=== PATIENT | female | born 1955 | race American Indian/Alaskan Native ===

== ENCOUNTER 2017-07-11 10:09 | Emergency (ER) | payer OTHER ==
[2017-07-11 10:23] VITALS: BP 148/87
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
--- NOTE | 2017-07-11 12:55 | XRay Report ---
AP CHEST: HISTORY: chest pain AP view of the chest demonstrates a normal mediastinal and cardiac contour with clear lungs and normal bony and soft tissue structures. IMPRESSION: Unremarkable AP chest.
== END 2017-07-11 13:12 | disposition home or self-care (01) ==
LOC: ED 10:09
DX: S20.211A Contusion of right front wall of thorax, initial encounter (principal); I10 Essential (primary) hypertension; F17.200 Nicotine dependence, unspecified, uncomplicated; Z88.8 Allergy status to other drugs, medicaments and biological substances; V89.2XXA Person injured in unspecified motor-vehicle accident, traffic, initial encounter; Y93.89 Activity, other specified; Y92.89 Other specified places as the place of occurrence of the external cause; Y99.8 Other external cause status
CPT/HCPCS: 71045

== ENCOUNTER 2019-06-16 08:42 | Emergency (ER) | payer MEDICARE, OTHER ==
--- NOTE | 2019-06-16 13:51 | Emergency Department Report ---
ED Eye Problem HPI - General Chief complaint: Eye Problems Stated complaint: LT EYE RED/ITCHING/DRAINAGE Source: patient Mode of arrival: Ambulatory Limitations: No Limitations - Related Data Home Medications Medication Instructions Recorded Confirmed Last Taken HCTZ 12.5 mg PO DAILY 02/22/16 02/22/16 Unknown Previous Rx's Medication Instructions Recorded Last Taken Type Ondansetron [Zofran Odt] 4 mg PO Q8HR #20 tab.rapdis 02/23/16 Unknown Rx Metaxalone [Skelaxin] 800 mg PO TID #20 tablet 07/11/17 Unknown Rx Naproxen [Naprosyn] 500 mg PO BID #14 tablet 07/11/17 Unknown Rx Gentamicin 0.3% Ophth Oint 1 applicatio OP Q4H 7 Days #1 tube 06/16/19 Unknown Rx Allergies Allergy/AdvReac Type Severity Reaction Status Date / Time iodine Allergy Anaphylaxis Verified 02/22/16 23:05 ED Review of Systems ROS: Stated complaint: LT EYE RED/ITCHING/DRAINAGE Other details as noted in HPI ED Past Medical Hx - Past Medical History Hx Hypertension: Yes Additional medical history: Hepatitis C, Cerebral Aneruysm - Surgical History Hx Appendectomy: Yes Additional Surgical History: Tubal Ligation, Brain aneurysm surgery 2013 - Social History Smoking Status: Never Smoker Substance Use Type: None - Medications Home Medications: Home Medications Medication Instructions Recorded Confirmed Last Taken Type HCTZ 12.5 mg PO DAILY 02/22/16 02/22/16 Unknown History Ondansetron [Zofran Odt] 4 mg PO Q8HR #20 tab.rapdis 02/23/16 Unknown Rx Metaxalone [Skelaxin] 800 mg PO TID #20 tablet 07/11/17 Unknown Rx Naproxen [Naprosyn] 500 mg PO BID #14 tablet 07/11/17 Unknown Rx Gentamicin 0.3% Ophth Oint 1 applicatio OP Q4H 7 Days #1 tube 06/16/19 Unknown Rx ED Physical Exam - General Limitations: No Limitations General appearance: alert, in no apparent distress - Head Head exam: Present: atraumatic - Eye Eye exam: Present: PERRL, EOMI, other (left upper eye internal hordeolum sclera mildly injected. ). Absent: periorbital swelling, periorbital tenderness - ENT ENT exam: Present: normal exam, normal orophraynx, mucous membranes moist - Neck Neck exam: Present: normal inspection. Absent: tenderness, lymphadenopathy - Respiratory Respiratory exam: Present: normal lung sounds bilaterally. Absent: respiratory distress, wheezes, rales, rhonchi - Cardiovascular Cardiovascular Exam: Present: regular rate, normal rhythm - GI/Abdominal GI/Abdominal exam: Absent: soft, distended, tenderness, guarding, rebound - Rectal Rectal exam: Absent: deferred - Extremities Exam Extremities exam: Present: normal inspection - Back Exam Back exam: Present: normal inspection - Neurological Exam Neurological exam: Present: alert - Psychiatric Psychiatric exam: Present: normal affect - Skin Skin exam: Present: warm, dry, intact, normal color. Absent: rash ED Course Vital Signs 06/16/19 06/16/19 06/16/19 08:51 08:52 14:00 Temperature 98.7 F 98.7 F Pulse Rate 67 61 Respiratory 16 Rate Blood Pressure 145/105 Blood Pressure 140/100 [Right] O2 Sat by Pulse 97 100 Oximetry ED Medical Decision Making - Medical Decision Making 63-year-old female with 3 day complaint of left upper eyelid irritation and itching. She denies any visual disturbance she has no known I injury. Upon examination she has a moderate size left upper eye lid hordelum. Critical care attestation.: If time is entered above; I have spent that time in minutes in the direct care of this critically ill patient, excluding procedure time. ED Disposition Clinical Impression: Internal hordeolum of left eye Qualifiers: Eyelid: upper Qualified Code(s): H00.024 - Hordeolum internum left upper eyelid Disposition: DC-01 TO HOME OR SELFCARE Is pt being admited?: No Does the pt Need Aspirin: No Condition: Stable Instructions: Marlen (ED) Additional Instructions: warm compress to left eye four times a day. Wash eye with baby shampoo. Use eye ointment as prescribed follow up with PCP in 2-3 days or sooner for any worsening symptoms Prescriptions: Gentamicin 0.3% Ophth Oint 1 applicatio OP Q4H 7 Days #1 tube Referrals: PRIMARY CARE, [Primary Care Provider] - 3-5 Days Forms: Work/School Release Form(ED) Time of Disposition: 13:49
[2019-06-16 14:02] VITALS: BP 140/100
== END 2019-06-16 14:00 | disposition home or self-care (01) ==
LOC: ED 08:42
DX: H00.024 Hordeolum internum left upper eyelid (principal); I10 Essential (primary) hypertension; Z98.51 Tubal ligation status; Z90.49 Acquired absence of other specified parts of digestive tract; Z79.899 Other long term (current) drug therapy; Z91.09 Other allergy status, other than to drugs and biological substances
CPT/HCPCS: 99282